=== PATIENT | female | born 1940 | race Caucasian/White ===

== ENCOUNTER → 2018-05-06 07:10 | Outpatient (CLI) | payer MEDICARE, SELFPAY ==
[2018-05-06 07:40] LABS: Alanine Aminotransferase 27 IU/L (9-52); Albumin 4.4 g/dL (3.5-5.0); Albumin Globulin Ratio 1.5 (1.0-2.8); Alkaline Phosphatase 70 U/L (38-126); Aspartate Aminotransferase 23 IU/L (14-36); BUN Creatinine Ratio 23.8 (6-22); Bilirubin Total 0.7 mg/dL (0.2-1.3); Blood Urea Nitrogen 19 mg/dL (7-17); Calcium 9.2 mg/dL (8.4-10.2); Carbon Dioxide 27 mmol/L (22-32); Chloride 107 mmol/L (98-107); Estimated Glomerular Filt Rate > 60.0 mL/min (>60); Glucose 116 mg/dL (80-110); HEMOLYSIS < 15 (0-50); Potassium 4.2 mmol/L (3.4-5.1); Sodium 143 mmol/L (137-145); Total Protein 7.4 g/dL (6.3-8.2)
[2018-05-06 08:56] LABS: Creatinine Urine Random 192.4 mg/dL
[2018-05-06 09:02] LABS: Microalbumi Creatinin Ratio Ur 17.1 ug/mg CR (<30); Microalbumin Urine Random 3.3 mg/dL (0-1.6)
[2018-05-06 09:12] LABS: Free T4, Direct Thyroxine 1.39 ng/dL (0.78-2.19)
[2018-05-06 09:26] LABS: Thyroid Stimulating Hormone 3.15 uIU/mL (0.47-4.68)
== END ==
PROVIDERS: Family Provider Physician Assistant; PCP Physician Assistant; Visit Provider Physician Assistant
DX: I48.92 Unspecified atrial flutter (principal); I10 Essential (primary) hypertension; E03.9 Hypothyroidism, unspecified
CPT/HCPCS: 36415; 80053; 82043; 82570; 84439; 84443

== ENCOUNTER → 2018-12-29 07:18 | Outpatient (CLI) | payer MEDICARE, SELFPAY ==
[2018-12-29 08:45] LABS: Alanine Aminotransferase 27 IU/L (9-52); Albumin 4.6 g/dL (3.5-5.0); Albumin Globulin Ratio 1.6 (1.0-2.8); Alkaline Phosphatase 70 U/L (38-126); Aspartate Aminotransferase 26 IU/L (14-36); Bilirubin Total 0.7 mg/dL (0.2-1.3); Blood Urea Nitrogen 23 mg/dL (7-17); Calcium 9.6 mg/dL (8.4-10.2); Carbon Dioxide 27 mmol/L (22-32); Chloride 105 mmol/L (98-107); Cholesterol 175 mg/dL (140-199); Estimated Glomerular Filt Rate 53.3 mL/min (>60); Globulin 2.9 g/dL (1.7-4.1); Glucose 118 mg/dL (80-110); HDL Cholesterol 70 mg/dL (40-60); HEMOLYSIS < 15 (0-50); LDL Cholesterol Calculated 93 mg/dL (<100); Potassium 4.2 mmol/L (3.4-5.1); Sodium 142 mmol/L (137-145); Total Protein 7.5 g/dL (6.3-8.2); Triglycerides 59 mg/dL (35-150)
[2018-12-29 09:16] LABS: Thyroid Stimulating Hormone 3.13 uIU/mL (0.47-4.68)
== END ==
PROVIDERS: PCP Physician Assistant; Visit Provider Physician Assistant
DX: E03.9 Hypothyroidism, unspecified (principal); I10 Essential (primary) hypertension; I48.92 Unspecified atrial flutter; Z51.81 Encounter for therapeutic drug level monitoring
CPT/HCPCS: 36415; 80053; 80061; 84443

== ENCOUNTER → 2019-06-13 07:03 | Outpatient (CLI) | payer MEDICARE, SELFPAY ==
[2019-06-13 08:02] LABS: BUN Creatinine Ratio 13.3 (6-22); Blood Urea Nitrogen 12 mg/dL (7-17); Calcium 9.2 mg/dL (8.4-10.2); Carbon Dioxide 26 mmol/L (22-32); Chloride 105 mmol/L (98-107); Estimated Glomerular Filt Rate > 60.0 mL/min (>60); Glucose 123 mg/dL (80-110); HEMOLYSIS < 15 (0-50); Potassium 3.7 mmol/L (3.4-5.1); Sodium 142 mmol/L (137-145)
[2019-06-13 08:45] LABS: Creatinine Urine Random 32.7 mg/dL
[2019-06-13 09:03] LABS: Microalbumi Creatinin Ratio Ur 18.3 ug/mg CR (<30); Microalbumin Urine Random < 0.6 mg/dL (0-1.6)
== END ==
PROVIDERS: PCP Physician Assistant; Visit Provider Physician Assistant
DX: I10 Essential (primary) hypertension (principal); R73.01 Impaired fasting glucose
CPT/HCPCS: 36415; 80048; 82043; 82570

== ENCOUNTER 2019-09-07 09:44 | Day surgery (SDC) | payer MEDICARE, SELFPAY ==
[2019-09-07] MEDS: PROPARACAINE 0.5% OPHTH SOL 2 DROPS EYE-OP (10:53)
[2019-09-07 10:54] VITALS: BP 147/71; PULSE 81; RESP 15; TEMP 36.4; O2SAT 100; BMI 28.8
--- NOTE | 2019-09-07 11:07 | PM.PREOP ---
Pre-operative Note Interval Note History & Physical reviewed/Exam performed by Physician: Yes Changes to H&P: No
[2019-09-07] MEDS: CATARACT EYE COMPOUND (10 DROPS/SYRINGE) 3 DROPS EYE-OP (11:15)
[2019-09-07 12:10] VITALS: BP 130/68; PULSE 80; RESP 16; TEMP 36.8; O2SAT 94
[2019-09-07] MEDS: TETRACAINE 0.5% OPHTH DROPS 4 ML 2 DROPS EYE-OP (12:18)
--- NOTE | 2019-09-07 12:30 | SUR.OPER ---
Supine on eye stretcher, head on extension cradle secured with tape. Arms tucked at sides with blanket. Pillow under knees.
[2019-09-07] MEDS: CHONDROIDTIN/SOD HYALURONATE 1.05 ML SYRINGE INTRAOCULA (12:32)
[2019-09-07] MEDS: BALANCED SALT IRRIG SOLN NO.2 15 ML 5 ML IRR (12:32)
[2019-09-07] MEDS: LIDOCAINE 2% INJ SDV 2 ML INJ (12:33)
[2019-09-07] MEDS: MOXIFLOXACIN INJ 5 MG/ML VIAL EYE-OP (12:33)
[2019-09-07] MEDS: PHENYLEPHRINE/LIDOCAINE VIAL (OR) 0.2 ML EYE-OP (12:34)
[2019-09-07] MEDS: BALANCED SALT IRRIG SOLN NO.2 500 ML, EPINEPHrine 1 MG IRR (12:34)
--- NOTE | 2019-09-07 12:54 | P.OP_ITS ---
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 The correct patient, surgical site and lens were confirmed. 0.5 % tetracaine drops were placed in the left eye. The patient was prepped and draped in the typical stacey rile manner. A lid speculum was placed in the eye. 2% lidocaine was placed on the eye. A paracentesis port was created with a side-port blade. 0.1 mL of 1% preservative free lidocaine with phenylephrine was injected into the anterior chamber. Viscoelastic was injected into the anterior chamber. A 2.6mm keratome was used to create a clear corneal temporal incision. Cystotome and Utrata forceps were used to create a continuous curvilinear capsulorrhexis. Balanced salt solution was used to hydrodissect the nucleus. Phacoemulsification was used to remove the lens. The capsular bag was inflated with viscoelastic. A Lowry ZCBOO +23.5D lens was inserted into the capsule. Viscoelastic was removed and the wound hydrated. The wound was found to be leak free and the eye was assessed to be at normal physiologic pressure. 0.1mL Vigamox was injected into the anterior chamber. The lid speculum was removed and the patient left the operating room in excellent condition. Complications: none Post-operative Condition: stable Disposition: same day surgery
[2019-09-07 13:01] VITALS: BP 132/78; PULSE 79; RESP 15; TEMP 36; O2SAT 100
== END 2019-09-07 13:15 | disposition home or self-care (01) ==
PROVIDERS: PCP Physician Assistant; Visit Provider Ophthalmology
PROC: (CPT 66984; principal; 2019-09-07 11:30)
DX: H25.12 Age-related nuclear cataract, left eye (principal); I48.91 Unspecified atrial fibrillation; I10 Essential (primary) hypertension
CPT/HCPCS: 66984; J0171; J2250

== ENCOUNTER → 2020-01-09 07:03 | Outpatient (CLI) | payer MEDICARE, SELFPAY ==
[2020-01-09 08:20] LABS: Hemoglobin A1C% w Est Avg Glu 5.8 % (4.0-6.0)
[2020-01-09 08:33] LABS: BUN Creatinine Ratio 18.9 (6-22); Blood Urea Nitrogen 17 mg/dL (7-17); Calcium 9.6 mg/dL (8.4-10.2); Carbon Dioxide 25 mmol/L (22-32); Chloride 108 mmol/L (98-107); Estimated Glomerular Filt Rate > 60.0 mL/min (>60); Glucose 120 mg/dL (80-110); HEMOLYSIS < 15 (0-50); Potassium 4.1 mmol/L (3.4-5.1); Sodium 141 mmol/L (137-145)
[2020-01-09 08:40] LABS: Microalbumin Urine Random 4.4 mg/dL (0-1.6)
[2020-01-09 09:04] LABS: Thyroid Stimulating Hormone 4.78 uIU/mL (0.47-4.68)
[2020-01-09 09:08] LABS: Creatinine Urine Random 440.9 mg/dL; Microalbumi Creatinin Ratio Ur 9.9 ug/mg CR (<30)
== END ==
PROVIDERS: Physician Assistant; PCP Nurse Practitioner; Referring Provider Nurse Practitioner; Visit Provider Nurse Practitioner
DX: E03.9 Hypothyroidism, unspecified (principal); I10 Essential (primary) hypertension; I48.92 Unspecified atrial flutter; R73.01 Impaired fasting glucose
CPT/HCPCS: 36415; 80048; 82043; 82570; 83036; 84443

== ENCOUNTER → 2020-04-05 07:14 | Outpatient (CLI) | payer MEDICARE, SELFPAY ==
[2020-04-05 08:20] LABS: Hemoglobin A1C% w Est Avg Glu 5.7 % (4.0-6.0)
[2020-04-05 08:24] LABS: Glucose 132 mg/dL (80-110)
[2020-04-05 09:37] LABS: Free T3, Triiodothyronine Free 2.89 pg/mL (2.77-5.27); Free T4, Direct Thyroxine 1.69 ng/dL (0.78-2.19)
[2020-04-05 09:51] LABS: Thyroid Stimulating Hormone 2.76 uIU/mL (0.47-4.68)
== END ==
PROVIDERS: PCP Nurse Practitioner; Referring Provider Nurse Practitioner; Visit Provider Nurse Practitioner
DX: E03.9 Hypothyroidism, unspecified (principal); I10 Essential (primary) hypertension; I48.92 Unspecified atrial flutter; Z79.899 Other long term (current) drug therapy; R73.9 Hyperglycemia, unspecified
CPT/HCPCS: 36415; 82947; 83036; 84439; 84443; 84481

== ENCOUNTER → 2020-12-25 07:30 | Outpatient (CLI) | payer MEDICARE, SELFPAY ==
[2020-12-25 08:16] LABS: Add Manual Diff / Slide Review NO; Basophils Absolute Auto 0 /uL (0-100); Basophils Percent Auto 0.7 % (0-2); Eosinophils Absolute Auto 400 /uL (0-450); Eosinophils Percent Auto 5.1 % (2-4); Lymphocytes Absolute Auto 1300 /uL (1100-4500); Lymphocytes Percent Auto 18.8 % (25-40); Mean Corpuscular HGB Conc 33.3 % (30-36); Mean Corpuscular Hemoglobin 28.2 PG (26-34); Mean Corpuscular Volume 84.7 fL (80-100); Monocytes Absolute Auto 500 /uL (0-900); Neutrophils Absolute Auto 4700 /uL (1500-7000); Neutrophils Percent Auto 68.4 % (50-75); Platelet Count 280 X10^3/uL (150-400); Red Blood Cell Count 4.61 X10^6/uL (4.0-5.2); Red Cell Distribution Width 14.6 % (11.6-14.8); White Blood Cell Count 6.9 X10^3/uL (4.5-11.0)
[2020-12-25 08:22] LABS: Hemoglobin A1C% w Est Avg Glu 5.8 % (4.0-6.0)
[2020-12-25 09:02] LABS: Alanine Aminotransferase 16 IU/L (<35); Albumin 4.3 g/dL (3.5-5.0); Albumin Globulin Ratio 1.3 (1.0-2.8); Alkaline Phosphatase 73 U/L (38-126); Aspartate Aminotransferase 28 IU/L (14-36); BUN Creatinine Ratio 21.5 (6-22); Bilirubin Total 0.5 mg/dL (0.2-1.3); Blood Urea Nitrogen 17 mg/dL (7-17); Calcium 9.3 mg/dL (8.4-10.2); Carbon Dioxide 31 mmol/L (22-32); Chloride 104 mmol/L (98-107); Estimated Glomerular Filt Rate > 60.0 mL/min (>60); Globulin 3.4 g/dL (1.7-4.1); Glucose 128 mg/dL (80-110); HEMOLYSIS < 15 (0-50); Potassium 4.3 mmol/L (3.4-5.1); Sodium 139 mmol/L (137-145); Total Protein 7.7 g/dL (6.3-8.2)
[2020-12-25 09:07] LABS: Microalbumin Urine Random 3.4 mg/dL (0-1.6)
[2020-12-25 09:23] LABS: Creatinine Urine Random 394.4 mg/dL; Microalbumi Creatinin Ratio Ur 8.6 ug/mg CR (<30)
[2020-12-25 09:31] LABS: Thyroid Stimulating Hormone 3.02 uIU/mL (0.47-4.68)
== END ==
PROVIDERS: PCP Nurse Practitioner; Referring Provider Nurse Practitioner; Visit Provider Nurse Practitioner
DX: E03.9 Hypothyroidism, unspecified (principal); R73.01 Impaired fasting glucose; I10 Essential (primary) hypertension; I48.92 Unspecified atrial flutter; Z79.01 Long term (current) use of anticoagulants
CPT/HCPCS: 36415; 80053; 82043; 82570; 83036; 84443; 85025

== ENCOUNTER 2021-01-02 13:10 | Emergency (ER) | payer MEDICARE, SELFPAY ==
[2021-01-02] VITALS (12 sets, daily range): BP systolic 127–157; BP diastolic 73–92; PULSE 113–128; RESP 13–26; TEMP 36.8; O2SAT 93–99; BMI 34.3
--- NOTE | 2021-01-02 13:37 | ED.GENADULT ---
HPI - General Adult General Chief complaint: Abdominal Pain Stated complaint: cannot hold food down since Wednesday Time Seen by Provider: 01/02/21 13:13 Source: patient Mode of arrival: Ambulatory Limitations: no limitations History of Present Illness HPI narrative: 80-year-old female here for evaluation of vomiting for the past couple days mostly associated with eating and also right upper quadrant pain and right-sided flank pain. States symptoms started several days ago in the evening. She thought that she had eaten some bad food however the symptoms continued for longer than 24 hours. Given seem to resolve the came back again. She denies any chest pain or shortness of breath. Has tried some Tums at home. States that the vomiting does not have any blood in it. She is also having some diarrhea but no urinary symptoms. Related Data Home Medications Medication Instructions Recorded Confirmed CA PANTOTHENATE/FOLIC ACID/VIT 1 tab PO QDAY #0 04/29/13 11/19/20 (MULTIVITAMIN) aspirin 81 mg PO QDAY #0 05/02/13 11/19/20 [ACETAMINOPHEN] 2 tab PO PRN PRN #0 05/05/17 11/19/20 Previous Rx's Medication Instructions Recorded DISABLED PARKING PLACARD #1 ea 01/05/19 carvedilol 12.5 mg tablet 12.5 mg PO BID #180 tab 01/11/20 diltiazem HCl 240 mg See Rx Instructions .ROUTE 01/11/20 capsule,extended release 24 hr .COMPLEX #90 capsule furosemide 20 mg tablet See Rx Instructions .ROUTE 01/11/20 .COMPLEX #90 tablet apixaban 5 mg tablet 5 mg PO BID #180 tab 05/22/20 levothyroxine 100 mcg tablet See Rx Instructions .ROUTE 10/24/20 .COMPLEX #90 tab ondansetron 4 mg PO Q6H PRN #14 tab 01/02/21 Allergies Allergy/AdvReac Type Severity Reaction Status Date / Time Penicillins [PENICILLINS] Allergy Intermediate Rash Verified 01/02/21 13:20 shellfish derived Allergy Intermediate GI upset Verified 01/02/21 13:20 [SHELLFISH DERIVED] Review of Systems Constitutional Constitutional: Denies fever(s) and Denies headache(s) ENT Ears, Nose, Mouth, and Throat: Denies headache(s) Cardiovascular Cardiovascular: Denies chest pain and Denies dyspnea Respiratory Respiratory: Denies dyspnea Gastrointestinal Gastrointestinal: Reports abdominal pain, Reports diarrhea, Reports nausea and Reports vomiting Genitourinary Genitourinary: Denies dysuria Genitourinary: Denies dysuria and Denies vaginal discharge Musculoskeletal Musculoskeletal: Reports back pain (Right flank) Integumentary/Breasts Skin/Breast: Denies lesions and Denies rash Neurologic Neurologic: Denies behavioral changes and Denies headache(s) Psychiatric Psychiatric: Denies behavioral changes Hematologic/Lymphatic On Anticoagulants: Yes Allergic/Immunologic Allergic/Immunologic: Denies urticaria Patient History Medical History Atrial fibrillation (Unknown) Chickenpox Chronic anticoagulation Hypertension (Unknown) Hypothyroidism (Unknown) Measles Mumps Osteoarthritis (Unknown) White coat syndrome with diagnosis of hypertension Surgical History History of knee replacement (01/2012) Status post hysterectomy (1974) Family History Father No problems noted. Mother No problems noted. Daughter No problems noted. Social History household members: none Smoking Status: Never smoker second hand exposure: Yes (when I was young.) alcohol intake: current substance use type: does not use Smoking Status: Never smoker alcohol intake frequency: holidays/special occasions only Substance Use Type: does not use Exam Initial Vital Signs Initial Vital Signs: Vital Signs Temperature 98.3 F 01/02/21 13:15 Pulse Rate 128 H 01/02/21 13:15 Respiratory Rate 19 01/02/21 13:15 Blood Pressure 153/74 H 01/02/21 13:15 Pulse Oximetry 97 01/02/21 13:15 Const General: cooperative, comfortable and well developed Limitations: mental status not altered HENMT Head: normal to inspection and normocephalic Resp Effort & Inspection: normal respiratory effort Auscultation: clear to auscultation bilaterally Cardio Rate: tachycardic Rhythm: regular rhythm GI Inspection: non-distended Palpation: soft and tender (Right upper quadrant negative Vieira sign) Back/Spine/Pelvis Back: No CVA tenderness Skin Lesions: no lesions Rashes: no rashes Neuro General: patient alert, patient awake and patient oriented x3 Cognition: normal cognition Speech: speech normal Extrem General: normal to inspection and capillary refill normal Psych Appearance: grossly normal and well kempt Course Orders Ordered: ED Orders 01/02/21 13:19 EKG-12 Lead Stat 01/02/21 13:38 US abdomen limited Stat 01/02/21 13:42 Complete Blood Count AUTO DIFF Stat Comprehensive Metabolic Panel Stat Lipase Stat 01/02/21 15:11 Urine Microscopic Stat Discontinued Medications Metoprolol Tartrate (Metoprolol Tartrate 5 Mg/5 Ml Inj) 5 mg IV NOW ONE Stop: 01/02/21 16:13 Last Admin: 01/02/21 16:21 Dose: 5 mg Documented by: RAMIN Vital Signs Vital signs: Vital Signs - 8 hr 01/02/21 13:15 01/02/21 13:18 01/02/21 13:30 Temperature 98.3 F Pulse Rate 128 H 127 H 128 H Respiratory Rate 19 18 Blood Pressure 153/74 H Pulse Oximetry 97 93 99 01/02/21 14:00 01/02/21 14:30 01/02/21 15:00 Temperature Pulse Rate 125 H 125 H 124 H Respiratory Rate Blood Pressure Pulse Oximetry 97 01/02/21 15:26 01/02/21 15:30 01/02/21 15:31 Temperature Pulse Rate 120 H 118 H 121 H Respiratory Rate 13 17 14 Blood Pressure 140/77 127/92 H Pulse Oximetry 98 99 98 01/02/21 16:00 Temperature Pulse Rate 124 H Respiratory Rate 26 H Blood Pressure 144/78 H Pulse Oximetry 98 Medical Decision Making Lab Data Lab results reviewed: Yes I reviewed the patient's lab results. Result diagrams: 01/02/21 13:42 01/02/21 13:42 Labs: Lab Results 01/02/21 01/02/21 01/02/21 Range/Units 13:42 13:42 15:11 WBC 13.1 H (4.5-11.0) X10^3/uL RBC 4.66 (4.0-5.2) X10^6/uL Hgb 13.0 (12.0-16.0) g/dL Hct 39.0 (36-46) % MCV 83.8 (80-100) fL MCH 27.9 (26-34) PG MCHC 33.3 (30-36) % RDW 14.8 (11.6-14.8) % Plt Count 314 (150-400) X10^3/uL Neut % (Auto) 79.9 H (50-75) % Lymph % (Auto) 11.8 L (25-40) % [place] % (Auto) 7.1 (3-14) % Eos % (Auto) 0.6 L (2-4) % Baso % (Auto) 0.6 (0-2) % Neut # (Auto) 57400 H (2127-6988) /uL Lymph # (Auto) 1500 (8222-9414) /uL [place] # (Auto) 900 (0-900) /uL Eos # (Auto) 100 (0-450) /uL Baso # (Auto) 100 (0-100) /uL Sodium 135 L (137-145) mmol/L Potassium 3.6 (3.4-5.1) mmol/L Chloride 100 (98-107) mmol/L Carbon Dioxide 26 (22-32) mmol/L BUN 16 (7-17) mg/dL Creatinine 0.81 (0.52-1.04) mg/dL Estimated GFR > 60.0 (>60) mL/min BUN/Creatinine Ratio 19.8 (6-22) Glucose 113 H (80-110) mg/dL Calcium 9.5 (8.4-10.2) mg/dL Total Bilirubin 0.9 (0.2-1.3) mg/dL AST 27 (14-36) IU/L ALT 17 (<35) IU/L Alkaline Phosphatase 80 (38-126) U/L Total Protein 7.4 (6.3-8.2) g/dL Albumin 4.4 (3.5-5.0) g/dL Globulin 3.0 (1.7-4.1) g/dL Albumin/Globulin Ratio 1.5 (1.0-2.8) Lipase 85 (23-300) U/L Urine RBC 1-5/hpf (0-5/HPF) Urine WBC 0-1/hpf (0-5/HPF) Ur Squamous Epith Cells 0-1 /hpf (0-5/HPF) Calcium Oxalate Crystal Occasional H Urine Bacteria Occasional (0-1) (None) Ur Culture Indicated? Cult not indicated Urine Dip Bedside Urine Glucose Negative Bedside Urine Bilirubin - Negative Bedside Urine Ketone - Negative Urine Specific [place] 1.015 Bedside Urine Occult Blood + Bedside Urine pH 6.0 Bedside Urine Protein - Negative Bedside Urine Urobilinogen - Negative Bedside Urine Nitrite - Negative Bedside Urine Leukocytes - Negative Esterase Point of care testing: Urine Dip Bedside Urine Glucose Negative Bedside Urine Bilirubin - Negative Bedside Urine Ketone - Negative Urine Specific [place] 1.015 Bedside Urine Occult Blood + Bedside Urine pH 6.0 Bedside Urine Protein - Negative Bedside Urine Urobilinogen - Negative Bedside Urine Nitrite - Negative Bedside Urine Leukocytes - Negative Esterase Imaging Data US - abdomen: Radiologist's Impression: [address] [id number] ReportSigned Patient: Ace Wang#: [id number]: [id number]/Sex: 80 / FDate of Service: 01/02/21Loc: EDAccession Number: [id number] Procedure: US abdomen limited Ordering Provider: Harinder Zhang D.O. PROCEDURE: US ABDOMEN LIMITED INDICATIONS: RIGHT UPPER QUADRANT PAIN TECHNIQUE: Real-time scanning was performed of the abdominal and retroperitoneal organs, with image documentation. COMPARISON: None. FINDINGS: Liver: Liver is normal in size and increased in echogenicity. Areas of decreased hepatic echogenicity most likely represent focal fatty sparing. Gallbladder: A large mobile shadowing calculus is seen within the gallbladder measuring 2.1 x 1.9 cm. There is no significant gallbladder wall thickening or pericholecystic fluid. Biliary ducts: Intrahepatic bile ducts are non-dilated. A probable shadowing calculus measuring 1.4 cm in longitudinal dimension is seen in the distal common bile duct at the level of the pancreatic head. The common bile duct measures up to 8 mm in width. There is no significant intrahepatic biliary ductal dilatation. Pancreas: Visualized portions of the pancreas are sonographically normal. Miscellaneous: No free right upper quadrant fluid. IMPRESSION: 1. Cholelithiasis without signs of acute cholecystitis. 2. Mild extrahepatic biliary ductal dilatation to 8 mm with a suspected shadowing choledocholith in the distal common bile duct at the level of the pancreatic head. Recommend clinical and laboratory correlation. ERCP or MRCP may be performed for further evaluation if clinically indicated. Dictated by: Mikey Michaels M.D. on 01/02/2021 at 14:35 Approved by: Mikey Michaels M.D. on 01/02/2021 at 14:41 ECG Data Attestation: I personally reviewed and interpreted this ECG as follows: Prior ECG tracings: not available for review Interpretation: Atrial flutter Ventricular rate of 128 2-1 av conduction Normal axis Normal QRS Normal QTC Nonspecific ST T wave changes MDM Narrative Medical decision making narrative: Patient does have a history of atrial fibrillation. She is in a flutter. She states she is taking her anticoagulation and also her diltiazem. She states she did take them this morning. She does have leukocytosis. Her LFTs and bilirubin and lipase are unremarkable. The pain that brought her in the emergency department today is localized to the epigastrium in the right upper quadrant. Ultrasound does show cholelithiasis without signs of cholecystitis. There is also some concerned about a gallstone in her common bile duct however given her age the 8 mm is a normal size. I did discuss the case with Dr. Cronin who is on-call for General surgery who recommended that if the patient is admitted that she be transferred to facility where there his ERCP capability which we do not have here at this facility. I did discuss this with the patient. She stated that she did not want to be transferred. She understood the risks and benefits of this. Informed her that it is reassuring that her LFTs and bilirubin or unremarkable but she does have a leukocytosis and she potentially could be at this start of an infection in this could worsen over the next couple days. Informed her that gallbladder pathology to include infections could potentially become serious. She expressed understanding of this. Her daughter was in the room for these discussions. Patient stated that she still did not want to be admitted to the hospital. She was given metoprolol which did improve her heart rate. She is not having chest pain or shortness of breath. Plan will be is to discharge home. She is alert oriented x3. GCS 15. Not clinically intoxicated in my opinion has the capacity to make decisions. She will return if her symptoms worsen. She is going to contact her primary provider for follow-up. With her and her daughter expressed understanding and agreement. Patient also states that she ate breakfast this morning without any problems. Discharge Plan Departure Patient Disposition: Home Clinical Impression: Cholelithiasis Instructions: DI for Gallstones Activity Restrictions/Additional Instructions: Despite our conversations today about our concerns with regard to gallbladder stones you decided to be discharged home and follow-up as an outpatient. I recommend that tomorrow you contact your primary provider. I also recommend you contact the [facility] at [phone] to schedule a follow-up appointment. Return to the emergency department for any fevers, worsening pain, inability to tolerate oral food or liquids despite the nausea medicine, chest pain, shortness of breath, or any other new or worsening symptoms Prescriptions: New ondansetron 4 mg tablet,disintegrating 4 mg PO Q6H PRN (Reason: nausea and vomiting) Qty: 14 RF: 0 No Action (DME) DISABLED PARKING PLACARD Qty: 1 RF: 0 CA PANTOTHENATE/FOLIC ACID/VIT (MULTIVITAMIN) 1 tab PO QDAY Qty: 0 RF: 0 aspirin 81 MG tablet,delayed release (DR/EC) 81 mg PO QDAY Qty: 0 RF: 0 [ACETAMINOPHEN] 2 tab PO PRN PRN (Reason: Pain (Scale Score 1-3)) Qty: 0 RF: 0 carvedilol [Coreg] 12.5 mg tablet 12.5 mg PO BID Qty: 180 RF: 3 diltiazem HCl 240 mg capsule,extended release 24hr See Rx Instructions .ROUTE .COMPLEX Qty: 90 RF: 3 furosemide 20 mg tablet See Rx Instructions .ROUTE .COMPLEX Qty: 90 RF: 3 Eliquis 5 mg tablet 5 mg PO BID Qty: 180 RF: 3 levothyroxine 100 mcg tablet See Rx Instructions .ROUTE .COMPLEX Qty: 90 RF: 3 Referrals: Lauren Figueroa ARNP [Primary Care Provider] -
[2021-01-02 14:01] LABS: Add Manual Diff / Slide Review NO; Basophils Absolute Auto 100 /uL (0-100); Basophils Percent Auto 0.6 % (0-2); Eosinophils Absolute Auto 100 /uL (0-450); Eosinophils Percent Auto 0.6 % (2-4); Lymphocytes Absolute Auto 1500 /uL (1100-4500); Lymphocytes Percent Auto 11.8 % (25-40); Mean Corpuscular HGB Conc 33.3 % (30-36); Mean Corpuscular Hemoglobin 27.9 PG (26-34); Mean Corpuscular Volume 83.8 fL (80-100); Monocytes Absolute Auto 900 /uL (0-900); Monocytes Percent Auto 7.1 % (3-14); Neutrophils Absolute Auto 10400 /uL (1500-7000); Neutrophils Percent Auto 79.9 % (50-75); Platelet Count 314 X10^3/uL (150-400); Red Blood Cell Count 4.66 X10^6/uL (4.0-5.2); Red Cell Distribution Width 14.8 % (11.6-14.8); White Blood Cell Count 13.1 X10^3/uL (4.5-11.0)
[2021-01-02 14:18] LABS: Alanine Aminotransferase 17 IU/L (<35); Albumin 4.4 g/dL (3.5-5.0); Albumin Globulin Ratio 1.5 (1.0-2.8); Alkaline Phosphatase 80 U/L (38-126); Aspartate Aminotransferase 27 IU/L (14-36); BUN Creatinine Ratio 19.8 (6-22); Bilirubin Total 0.9 mg/dL (0.2-1.3); Blood Urea Nitrogen 16 mg/dL (7-17); Calcium 9.5 mg/dL (8.4-10.2); Carbon Dioxide 26 mmol/L (22-32); Chloride 100 mmol/L (98-107); Estimated Glomerular Filt Rate > 60.0 mL/min (>60); Glucose 113 mg/dL (80-110); HEMOLYSIS < 15 (0-50); Lipase 85 U/L (23-300); Potassium 3.6 mmol/L (3.4-5.1); Sodium 135 mmol/L (137-145); Total Protein 7.4 g/dL (6.3-8.2)
[2021-01-02 15:40] LABS: Calcium Oxalate Crystals Urine Occasional; RBC Urine 1-5/HPF (0-5/HPF); Squamous Epithelial Cell Urine 0-1 /HPF (0-5/HPF); WBC Urine 0-1/HPF (0-5/HPF)
[2021-01-02 15:41] LABS: Bacteria Urine Occasional (0-1); Culture Indicated Urine Cult Not Indicated
[2021-01-02] MEDS: METOPROLOL TARTRATE 5 MG/5 ML INJ IV (16:21)
== END 2021-01-02 17:25 | disposition home or self-care (01) ==
PROVIDERS: Emergency Provider Emergency Medicine; PCP Nurse Practitioner
DX: K80.20 Calculus of gallbladder without cholecystitis without obstruction (principal); R11.2 Nausea with vomiting, unspecified; R19.7 Diarrhea, unspecified; I48.92 Unspecified atrial flutter
CPT/HCPCS: 36415; 76705; 80053; 81003; 81015; 83690; 85025; 93005; 96374; 99284

== ENCOUNTER → 2021-12-17 07:03 | Outpatient (CLI) | payer MEDICARE, SELFPAY ==
[2021-12-17 09:37] LABS: Alanine Aminotransferase 17 IU/L (<35); Albumin 4.4 g/dL (3.5-5.0); Albumin Globulin Ratio 1.6 (1.0-2.8); Alkaline Phosphatase 69 U/L (38-126); Aspartate Aminotransferase 27 IU/L (14-36); BUN Creatinine Ratio 21.6 (6-22); Bilirubin Total 0.6 mg/dL (0.2-1.3); Blood Urea Nitrogen 19 mg/dL (7-17); Calcium 9.5 mg/dL (8.4-10.2); Carbon Dioxide 30 mmol/L (22-32); Chloride 105 mmol/L (98-107); Cholesterol 198 mg/dL (140-199); Estimated Glomerular Filt Rate > 60.0 mL/min (>60); Globulin 2.7 g/dL (1.7-4.1); Glucose 110 mg/dL (80-110); HDL Cholesterol 86 mg/dL (40-60); HEMOLYSIS < 15 (0-50); LDL Cholesterol Calculated 98 mg/dL (<100); Potassium 4.6 mmol/L (3.4-5.1); Sodium 140 mmol/L (137-145); Total Protein 7.1 g/dL (6.3-8.2); Triglycerides 69 mg/dL (35-150)
[2021-12-17 10:08] LABS: Thyroid Stimulating Hormone 2.23 uIU/mL (0.47-4.68)
== END ==
PROVIDERS: PCP Nurse Practitioner; Referring Provider Nurse Practitioner; Visit Provider Nurse Practitioner
DX: I10 Essential (primary) hypertension (principal); E03.9 Hypothyroidism, unspecified; E78.2 Mixed hyperlipidemia; I48.92 Unspecified atrial flutter; R73.01 Impaired fasting glucose
CPT/HCPCS: 36415; 80053; 80061; 84443

== ENCOUNTER → 2023-11-26 07:55 | Outpatient (CLI) | payer MEDICARE, SELFPAY ==
[2023-11-26 08:39] LABS: Add Manual Diff / Slide Review NO; Basophils Absolute Auto 0 /uL (0-100); Basophils Percent Auto 0.6 % (0-2); Eosinophils Absolute Auto 400 /uL (0-450); Eosinophils Percent Auto 5.8 % (2-4); Hematocrit 38.7 % (36-46); Lymphocytes Absolute Auto 1200 /uL (1100-4500); Lymphocytes Percent Auto 18.2 % (25-40); Mean Corpuscular HGB Conc 33.7 % (30-36); Mean Corpuscular Hemoglobin 29.2 PG (26-34); Mean Corpuscular Volume 86.5 fL (80-100); Monocytes Absolute Auto 500 /uL (0-900); Monocytes Percent Auto 7.1 % (3-14); Neutrophils Absolute Auto 4600 /uL (1500-7000); Neutrophils Percent Auto 68.3 % (50-75); Platelet Count 244 X10^3/uL (150-400); Red Blood Cell Count 4.47 X10^6/uL (4.0-5.2); Red Cell Distribution Width 14.2 % (11.6-14.8); White Blood Cell Count 6.8 X10^3/uL (4.5-11.0)
[2023-11-26 09:17] LABS: Alanine Aminotransferase 18 IU/L (<35); Albumin 4.3 g/dL (3.5-5.0); Albumin Globulin Ratio 1.5 (1.0-2.8); Alkaline Phosphatase 68 U/L (38-126); Aspartate Aminotransferase 30 IU/L (14-36); BUN Creatinine Ratio 20.7 (6-22); Bilirubin Total 0.8 mg/dL (0.2-1.3); Blood Urea Nitrogen 17 mg/dL (7-17); Calcium 9.8 mg/dL (8.4-10.2); Carbon Dioxide 26 mmol/L (22-32); Chloride 105 mmol/L (98-107); Estimated Glomerular Filt Rate > 60 mL/min (>60); Globulin 2.9 g/dL (1.7-4.1); Glucose 115 mg/dL (80-110); HEMOLYSIS < 15 (0-50); Potassium 4.7 mmol/L (3.4-5.1); Sodium 139 mmol/L (137-145); Total Protein 7.2 g/dL (6.3-8.2)
[2023-11-26 09:41] LABS: Thyroid Stimulating Hormone 1.91 uIU/mL (0.47-4.68)
[2023-11-26 10:01] LABS: Hep C Virus Ab w/Reflex Quant NEGATIVE s/c (NEGATIVE)
[2023-11-26 11:03] LABS: Creatinine Urine Random 226.7 mg/dL
[2023-11-26 11:05] LABS: Microalbumi Creatinin Ratio Ur 20.2 ug/mg CR (<30); Microalbumin Urine Random 4.6 mg/dL (0-1.6)
== END ==
PROVIDERS: PCP Nurse Practitioner; Referring Provider Nurse Practitioner; Visit Provider Nurse Practitioner
DX: I48.91 Unspecified atrial fibrillation (principal); Z79.899 Other long term (current) drug therapy; R73.01 Impaired fasting glucose; I10 Essential (primary) hypertension; E03.9 Hypothyroidism, unspecified
CPT/HCPCS: 36415; 80053; 82043; 82570; 84443; 85025; 86803

== ENCOUNTER → 2024-12-08 07:33 | Outpatient (CLI) | payer MEDICARE, SELFPAY ==
[2024-12-08 08:02] LABS: Add Manual Diff / Slide Review NO; Basophils Absolute Auto 100 /uL (0-100); Basophils Percent Auto 0.9 % (0-2); Eosinophils Absolute Auto 400 /uL (0-450); Hematocrit 40.6 % (36-46); Hemoglobin 13.5 g/dL (12.0-16.0); Lymphocytes Absolute Auto 1100 /uL (1100-4500); Lymphocytes Percent Auto 14.8 % (25-40); Mean Corpuscular HGB Conc 33.4 % (30-36); Mean Corpuscular Volume 86.8 fL (80-100); Monocytes Absolute Auto 500 /uL (0-900); Monocytes Percent Auto 6.5 % (3-14); Neutrophils Absolute Auto 5500 /uL (1500-7000); Neutrophils Percent Auto 72.8 % (50-75); Platelet Count 283 X10^3/uL (150-400); Red Blood Cell Count 4.68 X10^6/uL (4.0-5.2); Red Cell Distribution Width 14.5 % (11.6-14.8); White Blood Cell Count 7.6 X10^3/uL (4.5-11.0)
[2024-12-08 08:26] LABS: Alanine Aminotransferase 19 IU/L (<35); Albumin 4.7 g/dL (3.5-5.0); Albumin Globulin Ratio 1.7 (1.0-2.8); Alkaline Phosphatase 73 U/L (38-126); Aspartate Aminotransferase 32 IU/L (14-36); BUN Creatinine Ratio 14.7 (6-22); Bilirubin Total 0.9 mg/dL (0.2-1.3); Blood Urea Nitrogen 14 mg/dL (7-17); Calcium 9.8 mg/dL (8.4-10.2); Carbon Dioxide 29 mmol/L (22-32); Chloride 102 mmol/L (98-107); Cholesterol 197 mg/dL (140-199); Estimated Glomerular Filt Rate 58 mL/min (>60); Globulin 2.8 g/dL (1.7-4.1); Glucose 134 mg/dL (80-110); HDL Cholesterol 90 mg/dL (40-60); HEMOLYSIS < 15 (0-50); LDL Cholesterol Calculated 88 mg/dL (<100); Potassium 4.9 mmol/L (3.4-5.1); Sodium 139 mmol/L (137-145); Total Protein 7.5 g/dL (6.3-8.2); Triglycerides 94 mg/dL (35-150)
[2024-12-08 08:40] LABS: Free T3, Triiodothyronine Free 4.23 pg/mL (2.77-5.27); Free T4, Direct Thyroxine 1.42 ng/dL (0.78-2.19)
[2024-12-08 08:54] LABS: Thyroid Stimulating Hormone 2.67 uIU/mL (0.47-4.68)
== END ==
PROVIDERS: PCP Internal Medicine; Referring Provider Internal Medicine; Visit Provider Internal Medicine
DX: I10 Essential (primary) hypertension (principal); I48.91 Unspecified atrial fibrillation; E03.9 Hypothyroidism, unspecified; R73.01 Impaired fasting glucose
CPT/HCPCS: 36415; 80053; 80061; 84439; 84443; 84481; 85025

== ENCOUNTER 2025-10-03 20:08 | Observation (INO) | payer MEDICARE, SELFPAY ==
[2025-10-03] VITALS (13 sets, daily range): BP systolic 149–200; BP diastolic 68–88; PULSE 77–101; RESP 18–23; TEMP 36.6; O2SAT 94–98; BMI 29.9
--- NOTE | 2025-10-03 20:29 | ED_ITS ---
HPI - GI Bleed General Chief complaint: GI Bleed Stated complaint: bleeding from rectum Time Seen by Provider: 10/03/25 20:16 Source: family Mode of arrival: Wheelchair History of Present Illness HPI Narrative: 85-year-old female history of atrial fibrillation on Eliquis presents with intermittent rectal bleeding on and off for the past 3 months presents this evening with multiple episodes of rectal bleeding for which this also happened this past Wednesday. Patient denies any chest pain, shortness of breath, back pain, abdominal pain, lightheadedness, dizziness. Other than what is stated 14 point review of system is negative Related Data Home Medications ?Medication ?Instructions ?Recorded ?Confirmed CA PANTOTHENATE/FOLIC ACID/VIT 1 tab PO QDAY ##0 04/2906/14/25 (MULTIVITAMIN) aspirin 81 mg tablet,delayed 81 mg PO QDAY ##0 3 06/14/25 release [ACETAMINOPHEN] 2 tab PO PRN PRN Pain (Scale Score 05/05/17 06/14/25 1-3) ##0 Previous Rx's ?Medication ?Instructions ?Recorded DISABLED PARKING PLACARD #1 ea 01/05/19 Disabled Parking Permit See Rx Instructions .Route 1 12/19/22 .COMPLEX #1 unit carvedilol 12.5 mg tablet (Coreg) 12.5 mg PO BID #180 tabs 09/18/24 diltiazem HCl 240 mg See Rx Instructions .Route 1 11/18/23 capsule,extended release 24 hr .COMPLEX #90 caps furosemide 20 mg tablet 20 mg PO DAILY #90 tabs 09/01 06/24 levothyroxine 100 mcg tablet 100 mcg PO DAILY #90 tabs 09/18/24 apixaban 5 mg tablet (Eliquis) 5 mg PO BID #180 tabs 1 11/17/24 Allergies Allergy/AdvReac Type Severity Reaction Status Date / Time Penicillins (PENICILLINS) Allergy Intermediate Rash Verified 06/14/25 10:39 shellfish derived (SHELLFISH Allergy Intermediate GI upset Verified 06/14/25 10:39 DERIVED) Review of Systems Review of Systems ROS Unobtainable: All systems reviewed & are unremarkable except as noted in HPI and below Patient History Medical History Cholelithiasis Impaired fasting glucose Acquired hypothyroidism (09/23/15) Essential hypertension (03/10/05) Atrial flutter with rapid ventricular response Chronic anticoagulation Osteoarthritis (Unknown) Atrial fibrillation (Unknown) Chickenpox Mumps Measles Surgical History History of knee replacement (01/2012) Status post hysterectomy (1974) Family History Father No problems noted. Mother No problems noted. Daughter No problems noted. Social History household members: none Smoking Status: Never smoker second hand exposure: Yes (when I was young.) alcohol intake: current substance use type: does not use Smoking Status: Never smoker alcohol intake frequency: holidays/special occasions only Exam Narrative Exam Narrative: GENERAL: [85] year old patient appears stated age. Well-developed patient, in mild distress. HEAD: Atraumatic. Normocephalic. EYES: Pupils equal round and reactive. Extraocular motions intact. No scleral icterus. No injection or drainage. ENT: Nose without bleeding, purulent drainage. Throat without erythema, tonsillar hypertrophy or exudate. Airway patent. NECK: Trachea midline. Non tender CARDIOVASCULAR: Regular rate and rhythm without murmurs, gallops, or rubs. RESPIRATORY: Clear to auscultation. Breath sounds equal bilaterally. No wheezes, rales, or rhonchi. GASTROINTESTINAL: Abdomen soft, non-tender, nondistended. Rectal: Guaiac-positive EXTREMITIES: No edema or joint tenderness. BACK: Nontender without deformity or crepitance. No flank tenderness. NEURO: AOx3. SKIN: No rash or erythema of visible areas Initial Vital Signs Initial Vital Signs: Vital Signs Oxygen Delivery Method Room Air 10/03/25 20:12 Course Orders Ordered: ED Orders 10/03/25 20:38 CT angio Abd/Pel GI Bleed Stat EKG-12 Lead Stat 10/03/25 20:40 Complete Blood Count AUTO DIFF Stat Comprehensive Metabolic Panel Stat Lipase Stat 10/03/25 22:16 Urine Culture Stat Urine Microscopic Stat Ondansetron HCl (Ondansetron 4 Mg/2 Ml Inj) 4 mg IV NOW PRN PRN Reason: Nausea And Vomiting Ondansetron HCl (Ondansetron 4 Mg Odt) 4 mg PO NOW PRN PRN Reason: Nausea And Vomiting Discontinued Medications Lactated Ringer's (Lactated Ringers) 1,000 mls @ 1,000 mls/hr IV BOLUS ONE Stop: 10/03/25 21:37 Last Infusion: 10/03/25 23:20 Dose: Infused Documented By: Admin: 10/03/25 21:06 Dose: 1,000 mls/hr Documented By: SHERYL Pantoprazole Sodium (Pantoprazole 40 Mg Vial) 40 mg IV NOW ONE Stop: 10/03/25 20:39 Last Admin: 10/03/25 21:06 Dose: 40 mg Documented By: SHERYL Vital Signs Vital signs: Vital Signs - 8 hr 10/03/25 20:12 10/03/25 20:19 10/03/25 20:27 Temperature 97.9 F Pulse Rate 87 101 H Respiratory Rate 18 Blood Pressure 196/84 H Pulse Oximetry 98 95 Oxygen Delivery Method Room Air Room Air 10/03/25 20:30 10/03/25 20:39 10/03/25 20:39 Temperature Pulse Rate 91 H 85 Respiratory Rate 20 22 Blood Pressure 182/79 H Pulse Oximetry 96 98 Oxygen Delivery Method 10/03/25 21:00 10/03/25 21:01 10/03/25 21:01 Temperature Pulse Rate 82 80 Respiratory Rate 21 18 Blood Pressure 178/80 H Pulse Oximetry 96 97 Oxygen Delivery Method 10/03/25 21:30 10/03/25 21:31 10/03/25 21:31 Temperature Pulse Rate 77 77 Respiratory Rate 22 22 Blood Pressure 149/68 H Pulse Oximetry 94 97 Oxygen Delivery Method 10/03/25 22:16 10/03/25 22:30 Temperature Pulse Rate 90 83 Respiratory Rate 23 18 Blood Pressure Pulse Oximetry 94 95 Oxygen Delivery Method Room Air MDM - GI Bleed Lab Data 10/03/25 20:40 10/03/25 20:40 Labs: Lab Results 10/03/25 10/03/25 Range/Units 20:40 22:16 WBC 8.0 (4.5-11.0) X10^3/uL RBC 4.06 (4.0-5.2) X10^6/uL Hgb 12.0 (12.0-16.0) g/dL Hct 35.2 L (36-46) % MCV 86.5 (80-100) fL MCH 29.5 (26-34) PG MCHC 34.1 (30-36) % RDW 14.4 (11.6-14.8) % Plt Count 285 (150-400) X10^3/uL Neut % (Auto) 66.5 (50-75) % Lymph % (Auto) 20.7 L (25-40) % [place] % (Auto) 6.0 (3-14) % Eos % (Auto) 6.0 H (2-4) % Baso % (Auto) 0.8 (0-2) % Neut # (Auto) 5300 (4563-0689) /uL Lymph # (Auto) 1700 (1226-7744) /uL [place] # (Auto) 500 (0-900) /uL Eos # (Auto) 500 H (0-450) /uL Baso # (Auto) 100 (0-100) /uL Sodium 140 (137-145) mmol/L Potassium 4.1 (3.4-5.1) mmol/L Chloride 105 (98-107) mmol/L Carbon Dioxide 23 (22-32) mmol/L BUN 17 (7-17) mg/dL Creatinine 0.94 (0.52-1.04) mg/dL Estimated GFR 59 L (>60) mL/min BUN/Creatinine Ratio 18.1 (6-22) Glucose 167 H (70-99) mg/dL Calcium 9.4 (8.4-10.2) mg/dL Total Bilirubin 0.5 (0.2-1.3) mg/dL AST 43 H (14-36) IU/L ALT 67 H (<35) IU/L Alkaline Phosphatase 73 (38-126) U/L Total Protein 7.7 (6.3-8.2) g/dL Albumin 4.7 (3.5-5.0) g/dL Globulin 3.0 (1.7-4.1) g/dL Albumin/Globulin Ratio 1.6 (1.0-2.8) Lipase 71 (23-300) U/L Urine RBC 1-5/hpf (0-5/HPF) Urine WBC 1-5/hpf (0-5/HPF) Ur Squamous Epith Cells 0-1 /hpf (0-5/HPF) Urine Bacteria Moderate (10-30) H (None) Ur Culture Indicated? Specimen cultured Vol Urine Centrifuged 10ml (spun) Point of Care Testing Stool Occult Blood Positive Urine Dip Bedside Urine Glucose Negative Bedside Urine Bilirubin - Negative Bedside Urine Ketone - Negative Urine Specific [place] 1.005 Bedside Urine Occult Blood +++ Bedside Urine pH 7.5 Bedside Urine Protein +/- 15 Bedside Urine Urobilinogen - Negative Bedside Urine Nitrite - Negative Bedside Urine Leukocytes + [address] scan - abdomen/pelvis: Radiologist's Impression: [address] [id number] [address] Scan Report Signed Patient: Kathi Wang MR#: [id number] : 1940 Acct:[id number] Age/Sex: 85 / F Date of Service: 10/03/25 Loc: ED Accession Number: [id number] Procedure: CT angio Abd/Pel GI Bleed Ordering Provider: Gio Sanchez D.O. PROCEDURE: CT ANGIO ABD/PEL GI BLEED INDICATIONS: GI Bleed TECHNIQUE: After the administration of intravenous contrast, 2.5 mm sections acquired from the diaphragm to the iliac crests. 10 mm maximum intensity projection (MIP) coronal and sagittal reformats were then performed. For radiation dose reduction, the following was used: automated exposure control. COMPARISON: None. FINDINGS: Image quality: Diagnostic. Abdominal aorta: No aortic aneurysm or evidence of acute aortic syndrome. Mesenteric arteries: Patent. There is severe narrowing with atherosclerotic calcifications of the celiac ostium. No significant stenosis of the SMA and DOTTY. Renal arteries: Patent. Moderate stenosis of the bilateral renal artery origins. Lower chest: Unremarkable. ABDOMEN: Liver: No solid mass on arterial phase imaging. Hepatic cysts are present. Gallbladder: Gallstones. No wall thickening Biliary ducts: No biliary dilation. Pancreas: No ductal dilation. Spleen: Size is within normal limits. Adrenal Glands: No adrenal nodules. Kidneys and Ureters: No hydronephrosis. No solid mass. No complex renal cystic lesion which requires follow up. Multiple nonobstructing stones in the right kidney measuring up to 8 mm in the lower pole. Stomach and Bowel: Normal colonic caliber, without significant wall thickening. Colonic diverticulosis without acute diverticulitis. Normal appendix. Peritoneum: No abnormal intraperitoneal fluid. No free air. Ventral Wall: No hernia. Abdominal Nodes: No retroperitoneal or mesenteric adenopathy by size criteria. Vessels: Aorta, as above. Normal IVC. PELVIS: Pelvic Organs: Unremarkable. Bladder: Unremarkable. Pelvic Nodes: No enlarged lymph nodes. Miscellaneous: No inguinal hernias are seen. Bones: No aggressive osseous abnormality. Degenerative changes of the osseous structures. IMPRESSION: No acute abnormality is visualized in the abdomen or pelvis. No evidence of active arterial gastrointestinal bleed on arterial phase imaging. Dictated by: Annie Martinez M.D. on 10/03/2025 at 22:58 Approved by: Annie Martinez M.D. on 10/03/2025 at 23:04 ECG Data Interpretation: Atria Flutter HR 80 MA undetermined QRS [address]-t wave change No previous EKG to compare MDM Narrative Medical decision making narrative: All lab work, vital signs, nurse triage note, medication list, previous ER visits, and all imaging studies reviewed. WBC 0.0 hemoglobin 12 platelet 280 sodium 140 potassium 4.1 chloride 105 CO2 23 bun 17 creatinine 0.94 glucose 167 AST 43 ALT 67. Case d/w will need kcentra to reverse eliquis and if not then will need to wait 2 days before can scope. Case discussed with who has graciously accepted the patient for inpatient admission and ok to start on kcentra. Discharge Plan Departure Patient Disposition: Admitted As Inpatient Clinical Impression: GI (gastrointestinal bleed) Admit Date/Time: 10/03/25 23:58 Admit Provider: Darren Smith
--- NOTE | 2025-10-03 20:38 | EKG_ITS ---
[address] [address] [place] [address] Test Date: 2025-10-03 Pat Name: Kathi Wang Department: [facility] Room: Gender: Female [employer]aking [employer] Worker: OLU : 1940 Requested By: Order Number: [id number] Reading MD: [place] Measurements Intervals [place] Rate: 80 P: ID: QRS: 12 QRSD: 80 T: 252 QT: 352 QTc: 405 Interpretive Statements Atrial flutter with variable AV block ST & T wave abnormality, consider lateral ischemia Electronically Signed On 10-06-2025 12:56:46 PST by [place]
--- NOTE | 2025-10-03 20:38 | DI.CT.S_ITS ---
PROCEDURE: CT ANGIO ABD/PEL GI BLEED INDICATIONS: GI Bleed TECHNIQUE: After the administration of intravenous contrast, 2.5 mm sections acquired from the diaphragm to the iliac crests. 10 mm maximum intensity projection (MIP) coronal and sagittal reformats were then performed. For radiation dose reduction, the following was used: automated exposure control. COMPARISON: None. FINDINGS: Image quality: Diagnostic. Abdominal aorta: No aortic aneurysm or evidence of acute aortic syndrome. Mesenteric arteries: Patent. There is severe narrowing with atherosclerotic calcifications of the celiac ostium. No significant stenosis of the SMA and DOTTY. Renal arteries: Patent. Moderate stenosis of the bilateral renal artery origins. Lower chest: Unremarkable. ABDOMEN: Liver: No solid mass on arterial phase imaging. Hepatic cysts are present. Gallbladder: Gallstones. No wall thickening Biliary ducts: No biliary dilation. Pancreas: No ductal dilation. Spleen: Size is within normal limits. Adrenal Glands: No adrenal nodules. Kidneys and Ureters: No hydronephrosis. No solid mass. No complex renal cystic lesion which requires follow up. Multiple nonobstructing stones in the right kidney measuring up to 8 mm in the lower pole. Stomach and Bowel: Normal colonic caliber, without significant wall thickening. Colonic diverticulosis without acute diverticulitis. Normal appendix. Peritoneum: No abnormal intraperitoneal fluid. No free air. Ventral Wall: No hernia. Abdominal Nodes: No retroperitoneal or mesenteric adenopathy by size criteria. Vessels: Aorta, as above. Normal IVC. PELVIS: Pelvic Organs: Unremarkable. Bladder: Unremarkable. Pelvic Nodes: No enlarged lymph nodes. Miscellaneous: No inguinal hernias are seen. Bones: No aggressive osseous abnormality. Degenerative changes of the osseous structures. IMPRESSION: No acute abnormality is visualized in the abdomen or pelvis. No evidence of active arterial gastrointestinal bleed on arterial phase imaging. Dictated by: Annie Martinez M.D. on 10/03/2025 at 22:58 Approved by: Annie Martinez M.D. on 10/03/2025 at 23:04
[2025-10-03 20:48] LABS: Add Manual Diff / Slide Review NO; Hematocrit 35.2 % (36-46); Hemoglobin 12.0 g/dL (12.0-16.0); Lymphocytes Absolute Auto 1700 /uL (1100-4500); Mean Corpuscular HGB Conc 34.1 % (30-36); Mean Corpuscular Hemoglobin 29.5 PG (26-34); Mean Corpuscular Volume 86.5 fL (80-100); Platelet Count 285 X10^3/uL (150-400)
[2025-10-03 20:59] LABS: Alanine Aminotransferase 67 IU/L (<35); Albumin 4.7 g/dL (3.5-5.0); Albumin Globulin Ratio 1.6 (1.0-2.8); Alkaline Phosphatase 73 U/L (38-126); Blood Urea Nitrogen 17 mg/dL (7-17); Calcium 9.4 mg/dL (8.4-10.2); Carbon Dioxide 23 mmol/L (22-32); Chloride 105 mmol/L (98-107); Estimated Glomerular Filt Rate 59 mL/min (>60); Globulin 3.0 g/dL (1.7-4.1); Glucose 167 mg/dL (70-99); HEMOLYSIS 35 (0-50); Lipase 71 U/L (23-300); Potassium 4.1 mmol/L (3.4-5.1); Sodium 140 mmol/L (137-145); Total Protein 7.7 g/dL (6.3-8.2)
[2025-10-03] MEDS: PANTOPRAZOLE 40 MG VIAL IV (21:06)
[2025-10-03] MEDS: LACTATED RINGERS 1,000 ML 1000 ML IV (21:06)
[2025-10-03 23:16] LABS: Culture Indicated Urine Specimen Cultured
[2025-10-03 23:52] LABS: Hematocrit 33.6 % (36-46); Hemoglobin 11.4 g/dL (12.0-16.0)
[2025-10-04] VITALS (25 sets, daily range): BP systolic 130–192; BP diastolic 65–100; PULSE 72–109; RESP 12–27; TEMP 35.9–36.6; O2SAT 93–99; BMI 29.9
[2025-10-04 00:01] LABS: INR 1.8 (0.9-1.3); Prothrombin Time 20.2 SECONDS (9.4-12.5)
--- NOTE | 2025-10-04 00:44 | PC.NURSE ---
pt signed consent for prothrombin
[2025-10-04] MEDS: SODIUM CHLORIDE 0.9% 1,000 ML 125 ML IV (01:36)
[2025-10-04 03:14] LABS: Hematocrit 30.1 % (36-46); Hemoglobin 10.3 g/dL (12.0-16.0)
[2025-10-04 04:50] LABS: Hematocrit 32.8 % (36-46); Hemoglobin 11.3 g/dL (12.0-16.0)
--- NOTE | 2025-10-04 06:48 | PM.CN.IH.1 ---
History of Present Illness Consult details Date Patient Seen: 10/04/25 Chief complaint: bleeding from rectum Reason for consult: LGI bleeding Requesting provider: Gio Sanchez Narrative: Surgery consult requested for colonoscopy. 85yo F admitted through ED last night with LGI bleeding. Initial hgb 12. CTA without active bleeding. Eliquis (afib) reversed with Kcentra last night. Golytely prep started this morning. Plan colonoscopy later today if successful prep. No prior colonoscopy exam. Denies family history for colon cancer. Meds Home Medications and Allergies Home Medications ?Medication ?Instructions ?Recorded ?Confirmed ?Type CA PANTOTHENATE/FOLIC ACID/VIT 1 tab PO QDAY ##0 04/29/13 10/04/25 History (MULTIVITAMIN) aspirin 81 mg tablet,delayed 81 mg PO QDAY ##0 05/02/13 10/04/25 History release [ACETAMINOPHEN] 2 tab PO PRN PRN Pain (Scale Score 05/05/17 10/04/25 History 1-3) ##0 DISABLED PARKING PLACARD #1 ea 01/05/19 06/14/25 Rx Disabled Parking Permit See Rx Instructions .Route 10/18/23 06/14/25 Rx .COMPLEX #1 unit carvedilol 12.5 mg tablet (Coreg) 12.5 mg PO BID #180 tabs 09/18/24 10/04/25 Rx diltiazem HCl 240 mg See Rx Instructions .Route 09/18/24 10/04/25 Rx capsule,extended release 24 hr .COMPLEX #90 caps furosemide 20 mg tablet 20 mg PO DAILY #90 tabs 09/18/24 10/04/25 Rx levothyroxine 100 mcg tablet 100 mcg PO DAILY #90 tabs 09/18/24 10/04/25 Rx apixaban 5 mg tablet (Eliquis) 5 mg PO BID #180 tabs 09/17/25 10/04/25 Rx Allergies Allergy/AdvReac Type Severity Reaction Status Date / Time Penicillins (PENICILLINS) Allergy Intermediate Rash Verified 06/14/25 10:39 shellfish derived (SHELLFISH Allergy Intermediate GI upset Verified 06/14/25 10:39 DERIVED) Exam Vital Signs (past 8 hours): - 10/03/25 23:00 10/03/25 23:30 10/03/25 23:34 Temperature Pulse Rate 84 85 Respiratory Rate 22 23 Blood Pressure 200/88 H Pulse Oximetry 94 Oxygen Delivery Method Oxygen Flow Rate 10/03/25 23:34 10/04/25 00:00 10/04/25 00:00 Temperature Pulse Rate 88 85 Respiratory Rate 18 18 Blood Pressure 177/85 H Pulse Oximetry 98 97 Oxygen Delivery Method Oxygen Flow Rate 10/04/25 00:30 10/04/25 01:04 10/04/25 01:05 Temperature Pulse Rate 87 109 H 102 H Respiratory Rate 24 27 H 12 Blood Pressure Pulse Oximetry 96 96 Oxygen Delivery Method Oxygen Flow Rate 10/04/25 01:05 10/04/25 01:30 10/04/25 02:00 Temperature Pulse Rate 79 77 Respiratory Rate 18 17 Blood Pressure 192/82 H Pulse Oximetry 93 94 Oxygen Delivery Method Oxygen Flow Rate 10/04/25 02:01 10/04/25 02:01 10/04/25 02:38 Temperature Pulse Rate 77 108 H Respiratory Rate 18 25 H Blood Pressure 175/76 H Pulse Oximetry 94 Oxygen Delivery Method Oxygen Flow Rate 10/04/25 02:59 10/04/25 02:59 10/04/25 03:00 Temperature Pulse Rate 79 82 Respiratory Rate 22 26 H Blood Pressure 161/70 H Pulse Oximetry 95 96 Oxygen Delivery Method Oxygen Flow Rate 10/04/25 03:01 10/04/25 03:01 10/04/25 03:30 Temperature Pulse Rate 85 76 Respiratory Rate 26 H 13 Blood Pressure 175/76 H Pulse Oximetry 96 96 Oxygen Delivery Method Oxygen Flow Rate 10/04/25 04:00 10/04/25 04:00 10/04/25 04:49 Temperature Pulse Rate 76 80 Respiratory Rate 14 22 Blood Pressure 175/72 H Pulse Oximetry 97 97 Oxygen Delivery Method Room Air Oxygen Flow Rate 10/04/25 05:30 Temperature 97.6 F Pulse Rate 107 H Respiratory Rate 17 Blood Pressure 130/86 Pulse Oximetry 97 Oxygen Delivery Method Oxygen Flow Rate 0 Oxygen Delivery Method Room Air Oxygen Flow Rate 0 Narrative Exam Narrative: Const General: healthy appearing, comfortable and no acute distress Orientation: alert and oriented x3 HENMT Ears: hearing grossly normal bilaterally Eyes Visual Vega: normal visual vega by confrontation Conjunctivae: conjunctivae normal Sclera: sclerae normal EOM: EOM intact bilaterally Resp Effort & Inspection: normal respiratory effort and able to speak in complete sentences Cardio Rate: regular rate GI Palpation: soft (NT) Extrem General: no pedal edema and no calf tenderness Objective Labs 10/04/25 04:40 10/03/25 20:40 Labs: Laboratory Results - last 24 hr 10/03/25 10/03/25 10/03/25 20:40 22:16 23:23 WBC 8.0 RBC 4.06 Hgb 12.0 11.4 L Hct 35.2 L 33.6 L MCV 86.5 MCH 29.5 MCHC 34.1 RDW 14.4 Plt Count 285 Neut % (Auto) 66.5 Lymph % (Auto) 20.7 L [place] % (Auto) 6.0 Eos % (Auto) 6.0 H Baso % (Auto) 0.8 Neut # (Auto) 5300 Lymph # (Auto) 1700 [place] # (Auto) 500 Eos # (Auto) 500 H Baso # (Auto) 100 PT 20.2 H INR 1.8 H Sodium 140 Potassium 4.1 Chloride 105 Carbon Dioxide 23 BUN 17 Creatinine 0.94 Estimated GFR 59 L BUN/Creatinine Ratio 18.1 Glucose 167 H Calcium 9.4 Total Bilirubin 0.5 AST 43 H ALT 67 H Alkaline Phosphatase 73 Total Protein 7.7 Albumin 4.7 Globulin 3.0 Albumin/Globulin Ratio 1.6 Lipase 71 Urine RBC 1-5/hpf Urine WBC 1-5/hpf Ur Squamous Epith Cells 0-1 /hpf Urine Bacteria Moderate (10-30) H Ur Culture Indicated? Specimen cultured Vol Urine Centrifuged 10ml (spun) Blood Type A Negative Antibody Screen Negative 10/04/25 10/04/25 02:58 04:40 WBC RBC Hgb 10.3 L 11.3 L Hct 30.1 L 32.8 L MCV MCH MCHC RDW Plt Count Neut % (Auto) Lymph % (Auto) [place] % (Auto) Eos % (Auto) Baso % (Auto) Neut # (Auto) Lymph # (Auto) [place] # (Auto) Eos # (Auto) Baso # (Auto) PT INR Sodium Potassium Chloride Carbon Dioxide BUN Creatinine Estimated GFR BUN/Creatinine Ratio Glucose Calcium Total Bilirubin AST ALT Alkaline Phosphatase Total Protein Albumin Globulin Albumin/Globulin Ratio Lipase Urine RBC Urine WBC Ur Squamous Epith Cells Urine Bacteria Ur Culture Indicated? Vol Urine Centrifuged Blood Type Antibody Screen [facility] Medical History Cholelithiasis Impaired fasting glucose Acquired hypothyroidism (09/23/15) Essential hypertension (03/10/05) Atrial flutter with rapid ventricular response Chronic anticoagulation Osteoarthritis (Unknown) Atrial fibrillation (Unknown) Chickenpox Mumps Measles Surgical History History of knee replacement (01/2012) Status post hysterectomy (1974) Family History Father No problems noted. Mother No problems noted. Daughter No problems noted. Social History household members: none Tobacco & Substance Use Smoking Status: Never smoker second hand exposure: Yes (when I was young.) alcohol intake: current substance use type: does not use Assessment & Plan Assessment and plan (1) GI (gastrointestinal bleed): Qualifiers: GI bleed type/associated pathology: unspecified gastrointestinal hemorrhage type Qualified Code(s): K92.2 - Gastrointestinal hemorrhage, unspecified Status: Acute Plan Plan colonoscopy, possible biopsy. The risks, benefits and options regarding the procedure were explained to the patient in detail. Risk discussion included but not limited to: bleeding, perforation, unable to reach cecum, missed lesion. The patient was encouraged to ask questions and they were answered to their satisfaction. The patient understands and is agreeable to proceed. Assessment & Plan narrative: Plan colonoscopy, possible biopsy. The risks, benefits and options regarding the procedure were explained to the patient in detail. Risk discussion included but not limited to: bleeding, perforation, unable to reach cecum, missed lesion. The patient was encouraged to ask questions and they were answered to their satisfaction. The patient understands and is agreeable to proceed. Time-Based Coding :: [TOTAL MINUTES] spent with patient and on the chart (including review of chart, obtaining history, exam, reviewing outside data, placing orders, documenting exam and treatment plan, and counseling patient) on [DATE]. PROFEE Charge Codes Inpatient or Observation consultation: 56955
--- NOTE | 2025-10-04 07:45 | P.HP_ITS ---
History of Present Illness History of Present Illness Date Patient Seen: 10/04/25 Time Patient Seen: 07:45 Chief complaint: bleeding from rectum Narrative: 85-year-old female whose care I have only recently taken over from her prior PCP. She is chronically anticoagulated with Eliquis due to atrial fibrillation and presents with intermittent bright red blood per rectum including several episodes on day of admission. She says it has been intermittently dark with maybe some tissue mixed and at other times more bright red blood. She was hemodynamically stable with hemoglobin hematocrit acceptable although down from previous earlier in the year. No evidence of large volume bleeding and numbers have remained stable during her so far brief hospitalization. She was admitted for endoscopy evaluation beginning with colonoscopy. She has been seen by General surgery already Past medical history otherwise unremarkable. She also has hypertension and is on carvedilol plus diltiazem for both rate control and hypertension. She also is hypothyroid on thyroid replacement therapy. She took all of her usual meds yesterday so last dose of Eliquis would have been last evening before coming to the emergency department Overnight since admission she has been hemodynamically stable. Hemoglobin hematocrit have remained stable. Continues with intermittent stool mixed with dark material but more red blood this morning she says [facility] Medical History Cholelithiasis Chronic anticoagulation Impaired fasting glucose Osteoarthritis (Unknown) Atrial fibrillation (Unknown) Chickenpox Mumps Measles Acquired hypothyroidism (09/23/15) Essential hypertension (03/10/05) Atrial flutter with rapid ventricular response Surgical History History of knee replacement (01/2012) Status post hysterectomy (1974) Family History Father No problems noted. Mother No problems noted. Daughter No problems noted. Social History household members: none Smoking Status: Never smoker second hand exposure: Yes (when I was young.) alcohol intake: current substance use type: does not use Meds Home Medications and Allergies Home Medications ?Medication ?Instructions ?Recorded ?Confirmed ?Type CA PANTOTHENATE/FOLIC ACID/VIT 1 tab PO QDAY ##0 04/2910/04/25 History (MULTIVITAMIN) aspirin 81 mg tablet,delayed 81 mg PO QDAY ##0 3 10/04/25 History release [ACETAMINOPHEN] 2 tab PO PRN PRN Pain (Scale Score 05/05/17 10/04/25 History 1-3) ##0 DISABLED P[address]ING PLACARD #1 ea 01/05/19 10/04/25 Rx Disabled Parking Permit See Rx Instructions .Route 1 12/19/22 10/04/25 Rx .COMPLEX #1 unit carvedilol 12.5 mg tablet (Coreg) 12.5 mg PO BID #180 tabs 09/18/24 10/04/25 Rx diltiazem HCl 240 mg See Rx Instructions .Route 1 11/18/23 10/04/25 Rx capsule,extended release 24 hr .COMPLEX #90 caps furosemide 20 mg tablet 20 mg PO DAILY #90 tabs 09/0110/04/25 Rx levothyroxine 100 mcg tablet 100 mcg PO DAILY #90 tabs 09/18/24 10/04/25 Rx apixaban 5 mg tablet (Eliquis) 5 mg PO BID #180 tabs 1 11/17/24 10/04/25 Rx Allergies Allergy/AdvReac Type Severity Reaction Status Date / Time Penicillins (PENICILLINS) Allergy Intermediate Rash Verified 06/14/25 10:39 shellfish derived (SHELLFISH Allergy Intermediate GI upset Verified 06/14/25 10:39 DERIVED) Review of Systems Review of Systems ROS: Yes All systems reviewed with the patient and are negative except as otherwise documented Exam Vital Signs (past 8 hours): - 10/04/25 00:00 10/04/25 00:00 10/04/25 00:30 Temperature Pulse Rate 85 87 Respiratory Rate 18 24 Blood Pressure 177/85 H Pulse Oximetry 97 96 Oxygen Delivery Method Oxygen Flow Rate 10/04/25 01:04 10/04/25 01:05 10/04/25 01:05 Temperature Pulse Rate 109 H 102 H Respiratory Rate 27 H 12 Blood Pressure 192/82 H Pulse Oximetry 96 Oxygen Delivery Method Oxygen Flow Rate 10/04/25 01:30 10/04/25 02:00 10/04/25 02:01 Temperature Pulse Rate 79 77 Respiratory Rate 18 17 Blood Pressure 175/76 H Pulse Oximetry 93 94 Oxygen Delivery Method Oxygen Flow Rate 10/04/25 02:01 10/04/25 02:38 10/04/25 02:59 Temperature Pulse Rate 77 108 H Respiratory Rate 18 25 H Blood Pressure 161/70 H Pulse Oximetry 94 Oxygen Delivery Method Oxygen Flow Rate 10/04/25 02:59 10/04/25 03:00 10/04/25 03:01 Temperature Pulse Rate 79 82 85 Respiratory Rate 22 26 H 26 H Blood Pressure Pulse Oximetry 95 96 96 Oxygen Delivery Method Oxygen Flow Rate 10/04/25 03:01 10/04/25 03:30 10/04/25 04:00 Temperature Pulse Rate 76 Respiratory Rate 13 Blood Pressure 175/76 H 175/72 H Pulse Oximetry 96 Oxygen Delivery Method Oxygen Flow Rate 10/04/25 04:00 10/04/25 04:49 10/04/25 05:30 Temperature 97.6 F Pulse Rate 76 80 107 H Respiratory Rate 14 22 17 Blood Pressure 130/86 Pulse Oximetry 97 97 97 Oxygen Delivery Method Room Air Oxygen Flow Rate 0 Oxygen Delivery Method Room Air Oxygen Flow Rate 0 Narrative Exam Narrative: Elderly female in no obvious distress lying in hospital bed HEENT unremarkable Lungs-clear with good breath sounds Heart-irregularly irregular but rate controlled no murmur Abdomen-benign positive bowel tones soft nontender nondistended Objective Labs 10/04/25 04:40 10/03/25 20:40 Labs: Laboratory Results - last 24 hr 10/03/25 10/03/25 10/03/25 20:40 22:16 23:23 WBC 8.0 RBC 4.06 Hgb 12.0 11.4 L Hct 35.2 L 33.6 L MCV 86.5 MCH 29.5 MCHC 34.1 RDW 14.4 Plt Count 285 Neut % (Auto) 66.5 Lymph % (Auto) 20.7 L Loving % (Auto) 6.0 Eos % (Auto) 6.0 H Baso % (Auto) 0.8 Neut # (Auto) 5300 Lymph # (Auto) 1700 Loving # (Auto) 500 Eos # (Auto) 500 H Baso # (Auto) 100 PT 20.2 H INR 1.8 H Sodium 140 Potassium 4.1 Chloride 105 Carbon Dioxide 23 BUN 17 Creatinine 0.94 Estimated GFR 59 L BUN/Creatinine Ratio 18.1 Glucose 167 H Calcium 9.4 Total Bilirubin 0.5 AST 43 H ALT 67 H Alkaline Phosphatase 73 Total Protein 7.7 Albumin 4.7 Globulin 3.0 Albumin/Globulin Ratio 1.6 Lipase 71 Urine RBC 1-5/hpf Urine WBC 1-5/hpf Ur Squamous Epith Cells 0-1 /hpf Urine Bacteria Moderate (10-30) H Ur Culture Indicated? Specimen cultured Vol Urine Centrifuged 10ml (spun) Blood Type A Negative Antibody Screen Negative 10/04/25 10/04/25 02:58 04:40 WBC RBC Hgb 10.3 L 11.3 L Hct 30.1 L 32.8 L MCV MCH MCHC RDW Plt Count Neut % (Auto) Lymph % (Auto) Loving % (Auto) Eos % (Auto) Baso % (Auto) Neut # (Auto) Lymph # (Auto) Loving # (Auto) Eos # (Auto) Baso # (Auto) PT INR Sodium Potassium Chloride Carbon Dioxide BUN Creatinine Estimated GFR BUN/Creatinine Ratio Glucose Calcium Total Bilirubin AST ALT Alkaline Phosphatase Total Protein Albumin Globulin Albumin/Globulin Ratio Lipase Urine RBC Urine WBC Ur Squamous Epith Cells Urine Bacteria Ur Culture Indicated? Vol Urine Centrifuged Blood Type Antibody Screen Assessment & Plan Assessment & Plan narrative: 1. Presumed rectal bleeding in a patient on a direct oral anticoagulant for stroke risk reduction in the setting of atrial fibrillation. Will hold her Eliquis for now. She was given Kcentra overnight but I am not aware that that has any effect on her clotting parameters nor does it reverse the direct oral anticoagulant. She is hemodynamically stable therefore I do not believe there is an urgent need for immediate reversal of her anticoagulation. Given the pharmacology of that particular medication 12-24 hours off medication should result in near normalization of her ability to clot blood. Therefore procedure later today still makes sense, in my opinion. She has started a prep for colonoscopy which I presumed to happen much later today after her prep assuming that goes uneventfully At this time she is not at a level where she would benefit from blood transfusion. She was given a dose of proton pump inhibitor in the emergency department in case there is an upper GI source of her bleeding which seem super unlikely given her presentation with intermittent bright red blood per rectum no melena etcetera. However we will continue that if there are no findings on colonoscopy and she probably would need an upper endoscopy as well. 2. Atrial fibrillation-patient with chronic atrial fibrillation already minimally tachycardic having missed a couple doses of meds. She definitely needs to be on her rate control agents which include the diltiazem and carvedilol. Blood pressure has been stable on so I think she is okay to receive these medications today 3. Hypertension-blood pressure okay and as above all receiving carvedilol and diltiazem for rate control more than anything else which will also control her blood pressure it seems 4. Hypothyroidism-continue oral thyroid replacement therapy. 5. Abnormal LFTs with elevated INR-the case center she was given should potentially help with the elevated INR. No abnormality noted on imaging of her liver or biliary tract. Minor bump in LFTs which has not been seen before. Bilirubin fortunately normal. Uncertain as to etiology at this time. Depending on findings regarding her GI bleed may need further investigation either as an inpatient or outpatient. 6. VTE prophylaxis-SCDs only not appropriate for anticoagulation until GI bleeding issues are settled, obviously. 7. Code status-patient previously requested do not resuscitate in the event of a sudden cardiac or respiratory arrest and that will be her status for this hospitalization Time-Based Coding :: [TOTAL MINUTES] spent with patient and on the chart (including review of chart, obtaining history, exam, reviewing outside data, placing orders, documenting exam and treatment plan, and counseling patient) on [DATE]. PROFEE Vice President Of [employer] Document charge(s): Yes Charge Codes Initial inpatient/observation care: [id number]
[2025-10-04] MEDS: PEG3350/SOD SULF,BICARB,CL/KCL 4,000 ML SOLUTION 2000 ML PO ×2 (07:58→14:30)
[2025-10-04] MEDS: LEVOTHYROXINE 100 MCG TABLET PO (08:20)
--- NOTE | 2025-10-04 09:29 | PC.NURSE ---
Patient started out having red and bloody stools this morning, started on go lytly prep and has had multiple brown loose stools in the toilet. She is tolerating the prep well, given morning medications per Dr. Lama. She remains NPO, other than prep. Up with sba and walker to the restroom. Denies any abdominal pain, states that when drinking the prep she has a full feeling in her stomach. Dr. Fernandez is aware as he rounded on patient.
--- NOTE | 2025-10-04 12:09 | CM.DANOTE ---
Initial DCP Assessment Note. Review EMR. Independent. Payor:??MCR PCP: Summary & Plan:?Patient arrived to ED via POV c/o blood in stool. Admitted OBS. Dx. GIB. Plan: Colonoscopy. Discharge home when medically cleared. Discharge Planning/Care Management CM Discharge Assessment Start: 10/04/25 01:49 Freq: Status: Active Protocol: Document 10/04/25 12:07 (Rec: 10/04/25 12:09 [id number]) Discharge Planning Assessment Assigned Discharge Selena Chowdhury RN CM Egg Grader Provider Dr. Fernandez Insurance Medicare Advance Directives? Yes: POLST; DPOA For Health Care; Health Care Directive Advance Directives No on File History Provided By Patient Has Patient been No admitted in last 30 days? Prior Living Apartment/Condo Arrangements Household Members none Independent with ADL Yes 's Is patient alert and Yes oriented? Barriers to No Discharge Transportation Angeli Blum ph# [phone] Arrangement Referrals Initiated None needed Review Status In Process Please Provide Date 10/04/25 Initial DC Assessment Was Performed Next Review Type Continued Stay Review
--- NOTE | 2025-10-04 15:42 | PC.NURSE ---
Patient is going for her colonoscopy now.
[2025-10-04] MEDS: LACTATED RINGERS 1,000 ML 42 ML IV (16:00)
--- NOTE | 2025-10-04 16:31 | PM.OP.COLON ---
Operative Date/Time/Diagnoses Date of procedure: 10/04/25 Time of procedure: 16:52 Pre-op diagnosis: BRBPR Post-op diagnosis: other (Extensive diverticulosis) Procedure & Clinicians Study performed: Colonoscopy Same procedure(s) as scheduled: Yes Indications: 85yo F, presents through ED with BRBPR, hgb 12, on eliquis for afib, reversed with Kcentra. Surgeon: Patel Sheth Anesthesia Type: MAC +/- Procedure Notes SCOAP/Timeout: Performed Procedure in detail: Colonoscopy Patient placed in left lateral recumbent position. Time out was performed. Procedural sedation was administered by anesthesia. Examination began with a thorough inspection of the perianal area. There was no evidence of fissures, fistulae, external hemorrhoids or cutaneous malignancy. The colonoscope was then placed into the rectum and the lumen was insufflated with carbon dioxide. The scope was carefully advanced forward. Ultimately the cecum was intubated and confirmed by identification of the ileocecal valve, the appendiceal orifice and the confluence of the taenia. The scope was then slowly withdrawn examining the colon thoroughly in all directions. In the rectum, retroflexion of the scope was performed for inspection of the distal rectum and anal canal. ?Significant colonoscopy findings: ?1. Quality of the preparation-good, Marshall 2-3, improved with irrigation/suction ?2. Extensive diverticular disease throughout colon, concentrated in sigmoid colon, multiple diverticulae impacted with hard balls of stool 3. No active bleeding 4. No mass, polyp, stricture 5. Clinical picture consistent with diverticular bleeding on eliquis Scope withdrawal time: 15 minutes Findings: divertiulosis Specimen(s): none sent Estimated Blood Loss: 5 Complications: none Impression: Extensive diverticular disease, throughout colon, concentrated in sigmoid colon No active bleeding Likely diverticular bleeding due to eliquis Post-procedure Recommendations: Colonoscopy in 10 years Plan for aftercare: PACU then valenzuela Follow up: as needed Disposition: PACU
[2025-10-05 05:00] VITALS: BP 165/62; PULSE 85; RESP 16; TEMP 36.5; O2SAT 99
[2025-10-05 05:14] LABS: Hematocrit 25.5 % (36-46); Hemoglobin 8.7 g/dL (12.0-16.0)
[2025-10-05 05:28] LABS: Alanine Aminotransferase 36 IU/L (<35); Albumin 3.4 g/dL (3.5-5.0); Albumin Globulin Ratio 1.4 (1.0-2.8); Alkaline Phosphatase 55 U/L (38-126); Blood Urea Nitrogen 11 mg/dL (7-17); Calcium 8.4 mg/dL (8.4-10.2); Carbon Dioxide 23 mmol/L (22-32); Chloride 111 mmol/L (98-107); Estimated Glomerular Filt Rate > 60 mL/min (>60); Globulin 2.4 g/dL (1.7-4.1); Glucose 102 mg/dL (70-99); HEMOLYSIS < 15 (0-50); Potassium 3.9 mmol/L (3.4-5.1); Sodium 141 mmol/L (137-145); Total Protein 5.8 g/dL (6.3-8.2)
[2025-10-05] MEDS: LEVOTHYROXINE 100 MCG TABLET PO (05:47)
--- NOTE | 2025-10-05 07:20 | PM.PN.IH.1 ---
Subjective Subjective Date Patient Seen: 10/05/25 Time Patient Seen: 07:20 Interval history: Patient is a bit hypertensive Still having watery stool output likely August from her colonoscopy but this included bright red blood No additional symptoms Exam Vital Signs (past 8 hours): - 10/05/25 05:00 Temperature 97.7 F Pulse Rate 85 Respiratory Rate 16 Blood Pressure 165/62 H Pulse Oximetry 99 Oxygen Flow Rate 0 Oxygen Delivery Method Room Air Oxygen Flow Rate 0 Objective Labs 10/05/25 04:35 10/05/25 04:35 Labs: Laboratory Results - last 24 hr 10/05/25 04:35 Hgb 8.7 L Hct 25.5 L Sodium 141 Potassium 3.9 Chloride 111 H Carbon Dioxide 23 BUN 11 Creatinine 0.71 Estimated GFR > 60 BUN/Creatinine Ratio 15.5 Glucose 102 H Calcium 8.4 Total Bilirubin 0.5 AST 27 ALT 36 H Alkaline Phosphatase 55 Total Protein 5.8 L Albumin 3.4 L Globulin 2.4 Albumin/Globulin Ratio 1.4 PFS Medical History Cholelithiasis Chronic anticoagulation Impaired fasting glucose Osteoarthritis (Unknown) Atrial fibrillation (Unknown) Chickenpox Mumps Measles Acquired hypothyroidism (09/23/15) Essential hypertension (03/10/05) Atrial flutter with rapid ventricular response Surgical History History of knee replacement (01/2012) Status post hysterectomy (1974) Family History Father No problems noted. Mother No problems noted. Daughter No problems noted. Social History household members: none Smoking Status: Never smoker second hand exposure: Yes (when I was young.) alcohol intake: current substance use type: does not use Assessment & Plan Assessment & Plan narrative: 1. Lower GI bleed-patient had colonoscopy yesterday that failed to demonstrate any significant lesions mass tumor AVMs etcetera. Multiple diverticuli many of which were impacted with stool. Diverticular bleeding felt to be most likely etiology given her presentation etcetera. Overnight blood count has fallen a bit, although hard to know how much may be due to delusional changes given the gap between testing due to her prep and colonoscopy. Still having bright red blood per rectum. Needs continued monitoring and a hospital setting including serial blood counts. Needs to remain off of her anticoagulation. 1 incisional further evidence of bleeding and blood counts have clearly stabilized than she can likely be discharged home. I would like her to remain off of her anticoagulation for at least 1 week beyond discharge 2. Hypertension-again significant interruption in her medication yesterday due to her prep for colonoscopy and the actual procedure. Will see what her numbers do with her routine medication administration today. May need additional medication 3. Atrial fibrillation-patient also somewhat tachycardic again I think due to medication administration issues. Much better as of this morning. Continue to monitor for now. Patient to remain off anticoagulation for at least 1 week post discharge 4. Activity-encourage patient to be up and about and not spending all of her time in her hospital bed. Time-Based Coding :: [TOTAL MINUTES] spent with patient and on the chart (including review of chart, obtaining history, exam, reviewing outside data, placing orders, documenting exam and treatment plan, and counseling patient) on [DATE]. PROFEE Director [employer] Document charge(s): Yes Charge Codes Subsequent inpatient/observation care: [id number]
--- NOTE | 2025-10-05 08:34 | P.DS_ITS ---
History of Present Illness History of Present Illness Date Patient Seen: 10/05/25 Time Patient Seen: 08:34 Chief complaint: bleeding from rectum Narrative: 85-year-old female whose care I have only recently taken over from her prior PCP. She is chronically anticoagulated with Eliquis due to atrial fibrillation and presents with intermittent bright red blood per rectum including several episodes on day of admission. She says it has been intermittently dark with maybe some tissue mixed and at other times more bright red blood. She was hemodynamically stable with hemoglobin hematocrit acceptable although down from previous earlier in the year. No evidence of large volume bleeding and numbers have remained stable during her so far brief hospitalization. She was admitted for endoscopy evaluation beginning with colonoscopy. She has been seen by General surgery already Past medical history otherwise unremarkable. She also has hypertension and is on carvedilol plus diltiazem for both rate control and hypertension. She also is hypothyroid on thyroid replacement therapy. She took all of her usual meds yesterday so last dose of Eliquis would have been last evening before coming to the emergency department Discharge Providers Provider Date of admission: 10/03/25 23:58 Discharge Date: 10/05/25 Primary care physician: Gio Fernandez MD Consults: 10/04/25 01:26 Consult to General Surgery Urgent Comment: Consulting Provider: Patel Sheth Reason for consultation: GI Bleed Has provider been notified: Yes Discharge provider: Gio Fernandez MD Summary Hospital Course Discharge Diagnosis: 1. Lower GI bleed likely secondary to diverticuli 2. Hypertension 3. Chronic atrial fibrillation 4. Acquired hypothyroidism Hospital Course: As above patient was admitted to the hospital with evidence of lower GI bleeding. She is chronically anticoagulated with Eliquis for her atrial fibrillation for stroke risk reduction. This was held during her hospitalization. Blood counts had dropped from baseline but appeared to be relatively stable over a several hour period of time. She was prepped for and underwent colonoscopy which failed to documented exact source of bleeding. Multiple diverticuli many of which were impacted with stool or noted and felt to be likely source of her bleeding Patient's blood count dropped more significantly when rechecked post colonoscopy but it was many many hours between checks. She had no evidence of large volume active bleeding per rectum and vital signs were stable. She was quite anxious to be discharged and this was felt to be appropriate. Patient was also modestly hypertensive for much of her hospitalization this is felt to be due in part to a disruption of her normal home medication routine in part because of her lengthy ER evaluation as well as her prep and colonoscopy etcetera. We will re-evaluate this as an outpatient as well but none of her numbers in the hospital were of an immediate danger or concern Patient's other medications were continued at discharge but showed remain off of her Eliquis I also recommended she initiate iron replacement therapy but in effort to avoid any degree of constipation suggest she discontinue her Colace stool softener and switch to Benefiber Status at Discharge Cognitive/behavioral status at discharge: at baseline, oriented Functional status at discharge: uses cane/walker Overall status at discharge: patient is progressing back to baseline Time Spent with Patient Time spent: Greater than 30 minutes Exam Vital Signs (past 8 hours): - 10/05/25 05:00 Temperature 97.7 F Pulse Rate 85 Respiratory Rate 16 Blood Pressure 165/62 H Pulse Oximetry 99 Oxygen Flow Rate 0 Oxygen Delivery Method Room Air Oxygen Flow Rate 0 Objective Labs 10/05/25 04:35 10/05/25 04:35 Labs: Laboratory Results - last 24 hr 10/05/25 04:35 Hgb 8.7 L Hct 25.5 L Sodium 141 Potassium 3.9 Chloride 111 H Carbon Dioxide 23 BUN 11 Creatinine 0.71 Estimated GFR > 60 BUN/Creatinine Ratio 15.5 Glucose 102 H Calcium 8.4 Total Bilirubin 0.5 AST 27 ALT 36 H Alkaline Phosphatase 55 Total Protein 5.8 L Albumin 3.4 L Globulin 2.4 Albumin/Globulin Ratio 1.4 [facility] Medical History Cholelithiasis Chronic anticoagulation Impaired fasting glucose Osteoarthritis (Unknown) Atrial fibrillation (Unknown) Chickenpox Mumps Measles Acquired hypothyroidism (09/23/15) Essential hypertension (03/10/05) Atrial flutter with rapid ventricular response Surgical History History of knee replacement (01/2012) Status post hysterectomy (1974) Family History Father No problems noted. Mother No problems noted. Daughter No problems noted. Social History household members: none Smoking Status: Never smoker second hand exposure: Yes (when I was young.) alcohol intake: current substance use type: does not use Discharge Assessment & Plan Assessment and Plan Plan of Treatment: Patient to remain off Eliquis for least 1 week or until seen again by Dr. Fernandez in the clinic. Discussion was held about the risks versus benefits of long-term discontinuation of Eliquis in the setting of chronic atrial fibrillation without decision being made Patient to start iron therapy 1 tablet daily. Patient warned about constipation risks which we do not want her to have given her diverticular disease in the colon. She will also therefore initiate Benefiber at the middle dosing range as indicated on the packaging Patient to be seen in clinic in 1 week's time for re-evaluation She is to return for any evidence of large volume bright red blood in the toilet etcetera and/or if her still does not begin to become much more solid over time etcetera Discharge Plan Discharge Plan Patient Disposition: Home Discharge orders & Medications Prescriptions: New Benefiber Healthy Shape 5 gram/7.4 gram powder 7.4 g PO DAILY Qty: 500 0RF ferrous sulfate 325 mg (65 mg iron) tablet 325 mg PO DAILY Qty: 30 0RF Continued (DME) DISABLED PARKING PLACARD Qty: 1 0RF Dose Instruction: As directed Rx Instructions: Patient qualifies for Disabled Parking Placard CA PANTOTHENATE/FOLIC ACID/VIT (MULTIVITAMIN) 1 tab PO QDAY Qty: 0 aspirin 81 MG tablet,delayed release (DR/EC) 81 mg PO QDAY Qty: 0 [ACETAMINOPHEN] 2 tab PO PRN PRN (Reason: Pain (Scale Score 1-3)) Qty: 0 Disabled Parking Permit See Rx Instructions .ROUTE .COMPLEX Qty: 1 0RF Rx Instructions: I find this patient to be medically disabled and qualify for disabled parking as indicated and signed on the accompanying disabled parking application for individuals. carvedilol [Coreg] 12.5 mg tablet 12.5 mg PO BID Qty: 180 3RF diltiazem HCl 240 mg capsule,extended release 24hr See Rx Instructions .ROUTE .COMPLEX Qty: 90 3RF Dose Instruction: TAKE 1 CAPSULE BY MOUTH EVERY DAY Rx Instructions: TAKE 1 CAPSULE BY MOUTH EVERY DAY levothyroxine 100 mcg tablet 100 mcg PO DAILY Qty: 90 3RF furosemide 20 mg tablet 20 mg PO DAILY Qty: 90 3RF Discontinued Eliquis 5 mg tablet 5 mg PO BID Qty: 180 3RF Follow up/Referrals: Gio Fernandez MD [Primary Care Provider, Internal Medicine] - 1 Week Discharge Health Status Multidrug resistant organism: No MDRO Diet/Activity/Treatments Diet: Diet as Tolerated Visit Report/Discharge Packet Instructions: High-Fiber Diet, DI for Diverticulosis Stand Alone Forms: Patient Portal/API, Stroke Signs & Symptoms Discharge Data Primary Care Provider: Gio Fernandez Attending Provider: Gio Fernandez Admit Date/Time: 10/03/25 23:58 [facility] Charge Codes Discharge inpatient/observation: [id number]
[2025-10-05 09:07] VITALS: BP 147/62; PULSE 107; RESP 16; TEMP 35.9; O2SAT 92
[2025-10-05 09:13] VITALS: BP 147/62; PULSE 107
[2025-10-05] MEDS: MULTIVITAMIN 1 TABLET 1 TAB PO (09:13)
[2025-10-05] MEDS: FUROSEMIDE 20 MG TABLET PO (09:13)
--- NOTE | 2025-10-05 11:17 | PC.NURSE ---
Pt discharged home at 1005, escorted off floor in wheelchair accompanied by daughter and hospital staff. IV removed, discharge teaching completed including new medications, worsening symptoms and follow up appointments. Patient left the floor with all belongings.
== END 2025-10-05 10:30 | disposition home or self-care (01) ==
LOC: ED 20:19 → AC 23:59
PROVIDERS: Surgery; Admitting Provider Family Medicine; Emergency Provider Family Medicine; PCP Internal Medicine; Referring Provider Family Medicine; Visit Provider Internal Medicine
PROC: 0DJD8ZZ Inspection of Lower Intestinal Tract, Via Natural or Artificial Opening Endoscopic (ICD-10-PCS; CPT 45378; principal; 2025-10-04 17:00)
DX: K62.5 Hemorrhage of anus and rectum (principal); I48.20 Chronic atrial fibrillation, unspecified; Z79.01 Long term (current) use of anticoagulants; Z90.710 Acquired absence of both cervix and uterus; I10 Essential (primary) hypertension; E03.9 Hypothyroidism, unspecified; K57.30 Diverticulosis of large intestine without perforation or abscess without bleeding; R94.5 Abnormal results of liver function studies
CPT/HCPCS: 45378; 36415; 74174; 80053; 81003; 81015; 82272; 83690; 85014; 85018; 85025; 85610; 86850; 86900; 86901; 87086; 93005; 96365; 96375; 99284; G0378; J2470; J2704; J7030; J7120; J7165; Q9967

== ENCOUNTER → 2025-10-11 11:05 | Outpatient (CLI) | payer MEDICARE, SELFPAY ==
[2025-10-08 11:54] VITALS: BMI 29.9
[2025-10-11 11:48] LABS: Hematocrit 32.2 % (36-46); Hemoglobin 11.1 g/dL (12.0-16.0)
== END ==
PROVIDERS: PCP Internal Medicine; Referring Provider Internal Medicine; Visit Provider Internal Medicine
DX: K92.2 Gastrointestinal hemorrhage, unspecified (principal)
CPT/HCPCS: 36415; 85014; 85018